=== PATIENT | female | born 1985 | race Caucasian/White ===

== ENCOUNTER 2018-07-12 16:43 | Emergency (ER) | payer OTHER ==
[~2018-07-12] VITALS: Ht 167.6 cm; Wt 67.9 kg
[~2018-07-12 16:43] MED LIST: ACETAMINOPHEN325 M1 OR; CONCERTA36 MG OR; HYDROCODON-ACE1 EAC7 PO; MAXALT MLT10 MG OR; OMEPRAZOLE20 M2 OR; XANAX 0.5 MG0.5 M1 OR; YASMIN 28 TABL1 EACH OR; ZOLOFT100 MG OR
[2018-07-12] MEDS ORDERED: METHYLPHENIDATE20 M5 PO (16:56)
[2018-07-12 17:46] LABS: ABSOLUTE EOSINOPHILS 0.1 thou/uL (0.0-0.7); ABSOLUTE LYMPHOCYTES 2.7 thou/uL (0.8-5.3); ABSOLUTE MONOCYTES 0.6 thou/uL (0.0-1.2); ABSOLUTE NEUTROPHILS 2.6 thou/uL (1.6-8.1); BASOPHILS 0.4 %; EOSINOPHILS 1.5 %; HEMATOCRIT 40.5 % (37.0-47.0); HEMOGLOBIN 13.9 gm/dL (12.0-15.0); LYMPHOCYTES 44.2 %; MCH 34.7 pg (26.0-34.0); MCHC 34.3 g/dL (28.0-37.0); MCV 101.1 fL (80.0-100.0); MONOCYTES 10.2 %; MPV 8.2 fl. (7.2-11.1); NUCLEATED RBCS 0 /100WBC; PLATELET COUNT* 258 thou/uL (150-400); POLYS 43.7 %; RDW-CV 12.4 % (10.5-14.5)
[2018-07-12 18:00] LABS: CALCIUM 8.8 mg/dL (8.5-10.1); CREATININE 0.8 mg/dL (0.6-1.3); POTASSIUM 3.6 mmol/L (3.5-5.1)
[2018-07-12 18:05] LABS: ALBUMIN 4.5 g/dL (3.4-5.0); TOTAL BILIRUBIN 0.2 mg/dL (<0.1-1.0); TOTAL PROTEIN 7.9 g/dL (6.4-8.2)
[2018-07-12] MEDS ORDERED: METHOCARBAMOL500 M2 PO (19:03)
[2018-07-12 19:11] VITALS: BP 116/82
== END 2018-07-12 19:12 | disposition home or self-care (01) ==
LOC: M.ERS 16:43
PROVIDERS: Nurse Practitioner Family
DX: S30.1XXA Contusion of abdominal wall, initial encounter (principal); S20.212A Contusion of left front wall of thorax, initial encounter; F41.9 Anxiety disorder, unspecified; F17.210 Nicotine dependence, cigarettes, uncomplicated; F98.8 Other specified behavioral and emotional disorders with onset usually occurring in childhood and adolescence; Z88.6 Allergy status to analgesic agent; Z88.8 Allergy status to other drugs, medicaments and biological substances; Z90.49 Acquired absence of other specified parts of digestive tract; W52.XXXA Crushed, pushed or stepped on by crowd or human stampede, initial encounter; Y93.89 Activity, other specified; Y92.89 Other specified places as the place of occurrence of the external cause; Y99.8 Other external cause status

== ENCOUNTER 2018-09-08 13:02 | Emergency (ER) | payer OTHER ==
[~2018-09-08] VITALS: Ht 162.6 cm; Wt 65.8 kg
[~2018-09-08 13:02] MED LIST changes: +METHOCARBAMOL500 M2 PO; +METHYLPHENIDATE20 M5 PO
[2018-09-08] MEDS ORDERED: TRAMADOL 50 MG50 MG PO (14:09)
[2018-09-08 14:20] VITALS: BP 100/75
== END 2018-09-08 14:29 | disposition home or self-care (01) ==
LOC: M.ERS 13:02
DX: S92.901A Unspecified fracture of right foot, initial encounter for closed fracture (principal); Y04.8XXA Assault by other bodily force, initial encounter; Y93.89 Activity, other specified; Y92.89 Other specified places as the place of occurrence of the external cause; Y99.8 Other external cause status; F41.9 Anxiety disorder, unspecified; Z90.49 Acquired absence of other specified parts of digestive tract; F17.210 Nicotine dependence, cigarettes, uncomplicated

== ENCOUNTER 2019-03-06 06:14 | Emergency (ER) | payer MEDICAID ==
[~2019-03-06] VITALS: Ht 162.6 cm; Wt 59.0 kg
[~2019-03-06 06:14] MED LIST changes: +TRAMADOL 50 MG50 MG PO
[2019-03-06] MEDS ORDERED: NORCO 5-325 TA1 EACH PO (08:45)
[2019-03-06 09:30] VITALS: BP 106/74
== END 2019-03-06 09:31 | disposition home or self-care (01) ==
LOC: M.ERS 06:14
DX: S83.8X2A Sprain of other specified parts of left knee, initial encounter (principal); F41.9 Anxiety disorder, unspecified; F98.8 Other specified behavioral and emotional disorders with onset usually occurring in childhood and adolescence; Z88.4 Allergy status to anesthetic agent; Z88.8 Allergy status to other drugs, medicaments and biological substances; Z90.49 Acquired absence of other specified parts of digestive tract; Z90.710 Acquired absence of both cervix and uterus; X58.XXXA Exposure to other specified factors, initial encounter; Y92.89 Other specified places as the place of occurrence of the external cause; Y99.0 Civilian activity done for income or pay; Y99.8 Other external cause status

== ENCOUNTER 2020-09-06 15:09 | Emergency (ER) | payer OTHER, MEDICAID ==
[~2020-09-06] VITALS: Ht 162.6 cm; Wt 59.0 kg
[~2020-09-06 15:09] MED LIST changes: +NORCO 5-325 TA1 EACH PO
[2020-09-06] MEDS ORDERED: ADDERALL 20 MG20 MG PO (15:23)
[2020-09-06] MEDS ORDERED: CELEXA 20 MG TA20 MG PO (15:23)
[2020-09-06 16:27] LABS: ABSOLUTE BASOPHILS 0.1 thou/uL (0.0-0.2); ABSOLUTE EOSINOPHILS 0.1 thou/uL (0.0-0.7); ABSOLUTE LYMPHOCYTES 2.5 thou/uL (0.8-5.3); ABSOLUTE MONOCYTES 0.5 thou/uL (0.0-1.2); BASOPHILS 1.3 %; EOSINOPHILS 1.5 %; HEMATOCRIT 43.5 % (37.0-47.0); HEMOGLOBIN 15.4 gm/dL (12.0-15.0); LYMPHOCYTES 30.2 %; MCH 35.9 pg (26.0-34.0); MCHC 35.5 g/dL (28.0-37.0); MPV 7.3 fl. (7.2-11.1); NUCLEATED RBCS 0 /100WBC; PLATELET COUNT* 317 thou/uL (150-400); RBC 4.31 mil/uL (4.20-5.00); RDW-CV 12.6 % (10.5-14.5); WBC 8.2 thou/uL (4.0-11.0)
[2020-09-06 16:34] LABS: CALCIUM 9.2 mg/dL (8.5-10.1); CREATININE 0.8 mg/dL (0.6-1.3); POTASSIUM 3.7 mmol/L (3.5-5.1)
[2020-09-06 16:39] LABS: ALBUMIN 4.3 g/dL (3.4-5.0); TOTAL BILIRUBIN 0.6 mg/dL (<0.1-1.0)
[2020-09-06] MEDS ORDERED: NORCO 5-325 TA1 EAC2 PO (18:20)
[2020-09-06] MEDS ORDERED: FLEXERIL PO (18:20)
[2020-09-06 18:26] VITALS: BP 106/74
== END 2020-09-06 18:26 | disposition home or self-care (01) ==
LOC: M.ERS 15:09
PROVIDERS: Physician Assistant
DX: M54.2 Cervicalgia (principal); Z79.899 Other long term (current) drug therapy; Z88.8 Allergy status to other drugs, medicaments and biological substances; Z90.49 Acquired absence of other specified parts of digestive tract; Z90.710 Acquired absence of both cervix and uterus

== ENCOUNTER 2020-09-19 22:00 | Emergency (ER) | payer OTHER, MEDICAID ==
[~2020-09-19] VITALS: Ht 162.6 cm; Wt 63.5 kg
[~2020-09-19 22:00] MED LIST changes: +ADDERALL 20 MG20 MG PO; +CELEXA 20 MG TA20 MG PO; +FLEXERIL PO; +NORCO 5-325 TA1 EAC2 PO
[2020-09-19 22:51] LABS: URINE BILIRUBIN NEGATIVE (Negative); URINE BLOOD TRACE (Negative); URINE CLARITY CLEAR; URINE COLOR YELLOW; URINE GLUCOSE-RANDOM NEGATIVE (Negative); URINE KETONES TRACE (Negative); URINE LEUKOCYTES-REFLEX NEGATIVE (Negative); URINE NITRITE-REFLEX NEGATIVE (Negative); URINE PROTEIN NEGATIVE (Negative); URINE UROBILINOGEN 0.2 E.U./dl (0.2-1.0)
[2020-09-19 22:53] LABS: ABSOLUTE BASOPHILS 0.1 thou/uL (0.0-0.2); ABSOLUTE LYMPHOCYTES 1.8 thou/uL (0.8-5.3); ABSOLUTE MONOCYTES 0.4 thou/uL (0.0-1.2); ABSOLUTE NEUTROPHILS 10.6 thou/uL (1.6-8.1); BASOPHILS 0.6 %; EOSINOPHILS 0.3 %; HEMATOCRIT 37.9 % (37.0-47.0); HEMOGLOBIN 13.1 gm/dL (12.0-15.0); LYMPHOCYTES 13.8 %; MCH 34.7 pg (26.0-34.0); MCHC 34.7 g/dL (28.0-37.0); MPV 7.4 fl. (7.2-11.1); NUCLEATED RBCS 0 /100WBC; PLATELET COUNT* 282 thou/uL (150-400); POLYS 82.3 %; RBC 3.79 mil/uL (4.20-5.00); RDW-CV 12.6 % (10.5-14.5); WBC 12.9 thou/uL (4.0-11.0)
[2020-09-19 23:02] LABS: CALCIUM 8.9 mg/dL (8.5-10.1); CREATININE 0.8 mg/dL (0.6-1.3); POTASSIUM 3.9 mmol/L (3.5-5.1)
[2020-09-19 23:03] LABS: APTT 27.4 Seconds (25.0-31.3); PROTIME 10.6 Seconds (9.20-11.50)
[2020-09-19 23:13] LABS: ALBUMIN 3.9 g/dL (3.4-5.0); TOTAL BILIRUBIN 0.5 mg/dL (<0.1-1.0); TOTAL PROTEIN 7.5 g/dL (6.4-8.2)
[2020-09-19] MEDS ORDERED: NORCO 5-325 TA1 EAC2 PO (23:47)
[2020-09-19] MEDS ORDERED: IMITREX 50 MG T50 MG PO (23:47)
[2020-09-19] MEDS ORDERED: PREDNISONE 20 M20 M1 PO (23:47)
[2020-09-19 23:59] VITALS: BP 126/92
--- NOTE | 2020-09-20 10:23 | EKG ---
[place] [address] ELECTROCARDIOGRAM REPORT Name: MASSIMO DAVE DARION Room: [facility]#: [id number] Admission: 09/19/20 Attend Phys: Discharge: 09/19/20 Date of : 81 Date of Service: 09/19/202239 Report #: [id number] THIS REPORT FOR: //name// [facility] ED Test Date: 2020-09-19 Test Time: 22:40:08 Pat Name: MASSIMO DAVE Department: Room: Gender: F [employer]: [facility] : 1985 Requested By: Boni Richards Order Number: [id number] MD: Shadi Viera Measurements Intervals [place] Rate: 92 P: 71 CA: 145 QRS: 85 QRSD: 98 T: 10 QT: 359 QTc: 445 Interpretive Statements sinus rhythm Baseline wander in lead(s) II,III,aVF Compared to ECG 09/19/2020 22:36:52 Sinus tachycardia no longer present Electronically Signed On 09-20-2020 10:23:13 CDT by Shadi Viera [email or web address] <ELECTRONICALLY SIGNED> By: Shadi Viera MD, FACC 09/20/20 1023 2240 Shadi Viera MD, [facility] /EPI
--- NOTE | 2020-09-20 10:23 | EKG ---
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: [facility] : 1985 Requested By: Boni Richards Order Number: [id number] MD: Shadi Viera Measurements Intervals [place] Rate: 101 P: 71 CA: 155 QRS: 89 QRSD: 98 T: 9 QT: 350 QTc: 454 Interpretive Statements Sinus tachycardia Baseline wander in lead(s) II,III,aVL,aVF,V3,V4,V5,V6 No previous ECG available for comparison Electronically Signed On 09-20-2020 10:22:48 CDT by Shadi Viera [email or web address] <ELECTRONICALLY SIGNED> By: Shadi Viera MD, FACC 09/20/20 1022 35 35 Shadi Viera MD, [facility] /EPI
== END 2020-09-19 23:59 | disposition home or self-care (01) ==
LOC: M.ERS 22:00
PROVIDERS: Family Medicine
DX: R51.9 Headache, unspecified (principal); A18.4 Tuberculosis of skin and subcutaneous tissue; Z90.710 Acquired absence of both cervix and uterus; Z87.442 Personal history of urinary calculi; Z90.49 Acquired absence of other specified parts of digestive tract; Z88.6 Allergy status to analgesic agent; Z88.8 Allergy status to other drugs, medicaments and biological substances